=== PATIENT | female | born 2005 | race African-American/Black ===

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

== ENCOUNTER 2024-05-26 12:40 | Emergency (ER) | payer OTHER, SELFPAY ==
[2024-05-26] MEDS ORDERED: Ondansetron PF 4 MG/2 ML Vial ONE (13:35)
[2024-05-26] MEDS ORDERED: Famotidine/PF 20 mg/2ml Vial ONE (13:35)
[2024-05-26 13:41] LABS: BHCG - Serum Negative (NEGATIVE); Pregs Control Bar Appear? YES (CONTROL BAR)
[2024-05-26 13:48] LABS: ALT (SGPT) 17 U/L (8-55); AST (SGOT) 24 U/L (5-30); Albumin 4.1 g/dL (3.5-5.0); Alkaline Phosphatase 56 U/L (40-100); Anion Gap 14 mmol/L (10-20); BUN (Urea Nitrogen) 11 mg/dL (8.4-21.0); Bilirubin, Total 0.5 mg/dL (0.2-1.2); Calc. Creatinine Clearance 0 mL/min (70-130); Calcium 9.8 mg/dL (7.8-10.44); Carbon Dioxide 23 mmol/L (22-29); Chloride 103 mmol/L (98-107); Estimated GFR 116; Globulin 4.3 g/dL (2.4-3.5); Glucose 104 mg/dL (70-105); Lipase 27 U/L (8-78); Potassium 3.7 mmol/L (3.5-5.1); Protein, Total 8.4 g/dL (6.0-8.3); Sodium 136 mmol/L (136-145)
[2024-05-26 14:01] LABS: #Lymphocytes 0.5 thou/uL (1.20-3.40); #Monocytes 0.4 thou/uL (0.11-0.59); #Neutrophils 7.5 thou/uL (1.40-6.50); %Basophils 0.4 % (0.0-1.0); %Eosinophils 0.1 % (0.0-10.0); %Lymphocytes 6.5 % (28.0-48.0); %Monocytes 4.1 % (0.0-4.0); %Neutrophils 88.9 % (31.0-61.0); Hematocrit 38.2 % (36.0-47.0); Hemoglobin 11.3 g/dL (12.0-16.0); Mean Corpuscular HGB CONC 29.7 g/dL (32.0-36.0); Mean Corpuscular Hemoglobin 23.9 pg (25.0-35.0); Mean Corpuscular Volume 80.5 fl (78.0-98.0); Mean Platelet Volume 8.6 fL (7.4-10.4); Platelet Count 204 10x3/uL (130-400); Red Blood Cell (RBC) Count 4.74 mill/uL (4.00-5.20); White Blood Cell (WBC) Count 8.4 10x3/uL (4.8-10.8)
[2024-05-26] MEDS ORDERED: Lidocaine 2% Viscous 100 ML BOTTLE ONE ×2 (14:09→14:11)
[2024-05-26] MEDS ORDERED: Mag-Al Plus 1200/1200/120 MG (30 mL) UDCUP ONE (14:09)
[2024-05-26] MEDS ORDERED: Promethazine HCl 25 MG/ML VIAL ONE (14:14)
[2024-05-26] MEDS ORDERED: Sodium Chloride 0.9% 1,000 ML ONE (14:14)
== END 2024-05-26 16:40 | disposition home or self-care (01) ==
LOC: NAV ERS 12:40
DX: R10.13 Epigastric pain (principal); R11.2 Nausea with vomiting, unspecified; F17.290 Nicotine dependence, other tobacco product, uncomplicated
CPT/HCPCS: 80053; 83690; 84703; 85025; 96361; 96365; 96375; J2405; J2550; J3490; J7030

== ENCOUNTER 2024-06-19 17:29 | Emergency (ER) | payer SELFPAY ==
[2024-06-19] MEDS ORDERED: Acetaminophen 500 MG TAB ONE (17:35)
[2024-06-19] MEDS ORDERED: Bicillin LA 1.2 MILLION UNITS/2 ML SYRINGE ONE (18:36)
[2024-06-19] MEDS ORDERED: Dexamethasone 4 mg/ml Vial ONE (18:36)
== END 2024-06-19 19:00 | disposition home or self-care (01) ==
LOC: NAV ERS 17:29
DX: J03.90 Acute tonsillitis, unspecified (principal); R50.9 Fever, unspecified; F17.290 Nicotine dependence, other tobacco product, uncomplicated
CPT/HCPCS: 87081; 87428; 87430; 96372; 99283; J0561; J1100

== ENCOUNTER 2024-07-21 17:22 | Emergency (ER) | payer SELFPAY ==
[~2024-07-21 17:22] MED LIST: Iopamidol 370 76% 100 ML VIAL ONE
[2024-07-21 18:15] LABS: Bilirubin Negative (Negative); Blood, Urine Trace (Negative); Clarity Clear (Clear); Glucose, Urine (Dipstick) Negative (Negative); Ketone, Urine Negative (Negative); Leukocyte Trace (Negative); Nitrite Negative (Negative); Protein, Urine (Dipstick) Negative (Neg-Trace); Specific Gravity, Urine 1.015 (1.005-1.030); pH, Urine 7.5 (5.0-9.0)
[2024-07-21 18:15] LABS: #Lymphocytes 1.7 thou/uL (1.20-3.40); #Monocytes 0.8 thou/uL (0.11-0.59); #Neutrophils 5.4 thou/uL (1.40-6.50); %Basophils 0.4 % (0.0-1.0); %Eosinophils 0.1 % (0.0-10.0); %Monocytes 9.9 % (0.0-4.0); %Neutrophils 68.6 % (31.0-61.0); Hematocrit 32.3 % (36.0-47.0); Hemoglobin 10.4 g/dL (12.0-16.0); Mean Corpuscular HGB CONC 32.3 g/dL (32.0-36.0); Mean Corpuscular Hemoglobin 26.2 pg (25.0-35.0); Mean Corpuscular Volume 81.1 fl (78.0-98.0); Mean Platelet Volume 7.7 fL (7.4-10.4); Platelet Count 233 10x3/uL (130-400); RBC Distribution Width 15.3 % (11.5-14.5); Red Blood Cell (RBC) Count 3.98 mill/uL (4.00-5.20); White Blood Cell (WBC) Count 7.9 10x3/uL (4.8-10.8)
[2024-07-21 18:20] LABS: CAUTI Indications for Culture Pelvic or flank pain; Squamous Epithelial 0-3 HPF (0-3); Transitional Epithelial 0-3 HPF (None Seen)
[2024-07-21 18:21] LABS: Bacteria/HPF 3+ HPF (None Seen); Urine Culture Reflex Yes Yes
[2024-07-21 18:24] LABS: BHCG - Serum Negative (NEGATIVE); Pregs Control Bar Appear? YES (CONTROL BAR)
[2024-07-21 18:32] LABS: ALT (SGPT) 20 U/L (8-55); AST (SGOT) 18 U/L (5-30); Albumin 3.3 g/dL (3.5-5.0); Alkaline Phosphatase 50 U/L (40-100); Anion Gap 12 mmol/L (10-20); BUN (Urea Nitrogen) 8 mg/dL (8.4-21.0); Bilirubin, Total 0.4 mg/dL (0.2-1.2); Calc. Creatinine Clearance 0 mL/min (70-130); Calcium 9.1 mg/dL (7.8-10.44); Carbon Dioxide 24 mmol/L (22-29); Chloride 102 mmol/L (98-107); Estimated GFR 91; Globulin 4.5 g/dL (2.4-3.5); Glucose 91 mg/dL (70-105); Potassium 4.3 mmol/L (3.5-5.1); Protein, Total 7.8 g/dL (6.0-8.3); Sodium 134 mmol/L (136-145)
[2024-07-21] MEDS ORDERED: Morphine 4 MG/ML VIAL ONE (23:07)
[2024-07-21] MEDS ORDERED: cefTRIAXone (ROCEPHIN) 1 GM VIAL ONE (23:08)
== END 2024-07-22 00:30 | disposition short-term general hospital (02) ==
LOC: NAV ERS 17:22
DX: R10.30 Lower abdominal pain, unspecified (principal); F17.290 Nicotine dependence, other tobacco product, uncomplicated
CPT/HCPCS: 36415; 74177; 80053; 81001; 83605; 84703; 85025; 87040; 87077; 87086; 87186; 96361; 96374; 96375; 96376; J0696; J2272; Q9967